=== PATIENT | female | born 1970 | race Caucasian/White ===

== ENCOUNTER → 2019-12-25 13:20 | Outpatient (CLI) | payer OTHER | END | disposition home or self-care (01) | LOC: D.MRI 13:00 | PROVIDERS: ATTEND Orthopaedic Surgery | DX: M93.261 Osteochondritis dissecans, right knee (principal) ==

== ENCOUNTER → 2020-02-01 15:20 | Outpatient (CLI) | payer OTHER | END | disposition home or self-care (01) | LOC: D.LABREF 15:20 | PROVIDERS: ATTEND Orthopaedic Surgery | DX: M10.9 Gout, unspecified (principal) ==

== ENCOUNTER 2020-07-17 05:25 | Day surgery (SDC) | payer OTHER ==
[2020-07-14 14:43] LABS: BASOPHILS 0.2 % (0-2); HEMATOCRIT 40.5 % (36.0-48.0); IMMATURE GRANULOCYTES 0.4 % (0-5); LYMPHOCYTE ABS# 2.08 10x3/uL (1.18-3.74); LYMPHOCYTES 20.6 % (15-50); MCH 28.4 pg (26.0-34.0); MCHC 32.1 g/dL (31.0-37.0); MCV 88.6 fL (80.0-100.0); MEAN PLATELET VOLUME 8.9 fL (7.4-10.4); MONOCYTES 6.2 % (2-11); NEUTROPHIL ABS# 7.24 10x3/uL (1.56-6.13); NEUTROPHILS 71.6 % (40-80); PLATELET COUNT 296 10x3/uL (130-400); RBC 4.57 10x6/uL (4.00-5.40); RDW 14.2 % (11.5-14.5); WBC 10.1 10x3/uL (4.8-10.8)
[2020-07-14 15:08] LABS: ANION GAP 10.7 mmol/L (8-16); CALCIUM 8.9 mg/dL (8.5-10.1); CARBON DIOXIDE 30.9 mmol/L (21.0-32.0); POTASSIUM - SERUM 3.6 mmol/L (3.5-5.1)
[~2020-07-17] VITALS: Ht 160 cm; Wt 89.8 kg
[~2020-07-17 05:25] MED LIST: ALDACTONE50 MG PO; CALAN SR240 MG PO; CYMBALTA20 MG; EMGALITY IM; ESTRACE1 MG PO; FLUTICASONE PRO16 GM NASAL; KLOR-CON 1010 MEQ; OMEPRAZOLE40 MG PO; PROPRANOLOL HCL20 MG
[2020-07-17 06:16] VITALS: BP 153/86; Ht 160 cm; Wt 89.8 kg
[2020-07-17] MEDS ORDERED: REGLAN10 MG PO (06:32)
--- NOTE | 2020-07-17 09:43 | NUR ---
STEADILY DECLINING BP - 500ML LR BOLUS ADMINISTERED
--- NOTE | 2020-07-17 11:40 | NUR ---
PATIENT NOW REPORTS PAIN 4/10 LLE
--- NOTE | 2020-07-17 12:00 | NUR ---
PT STATES NEEDS TO GO TO RESTROOM. IV FLUIDS COMPLETED, IV DC'D WITH CATH INTACT, ASSISTED PT TO DANGLE AND TO BATHROOM, NO DIZZINESS. SPOUSE HELPING PATIENT TO GET DRESSED.
--- NOTE | 2020-07-17 12:10 | NUR ---
DC'D VIA WHEELCHAIR ACCOMPANIED BY ARLETTE TO POV WITH SPOUSE DRIVING ALL BELONGINGS WITH PATIENT AND SPOUSE
--- NOTE | 2020-07-19 11:50 | OP ---
PATIENT NAME: NAN INGRAM MEDICAL RECORD: [id number] :70 LOCATION:[facility] ADMISSION DATE: SURGEON: ASHLY RECIO MD DATE OF OPERATION: 07/17/2020 PREOPERATIVE DIAGNOSES: 1. Left knee pain. 2. Chondromalacia. POSTOPERATIVE DIAGNOSES: 1. Left knee pain. 2. Chondromalacia. PROCEDURE PERFORMED: Left knee scope with chondroplasty and limited synovectomy. INDICATIONS FOR THE PROCEDURE: Ms. Ingram is a 50-year-old female with a history of left knee pain and swelling. She has been having a lot of catching in her knee as well. We have been attempting conservative treatments that are not making much progress and she has elected to undergo surgery for left knee arthroscopy. Risks, benefits and alternatives of surgery were discussed with the patient and consent was obtained. DESCRIPTION OF THE PROCEDURE: The patient was met in the holding area where her identity and confirmation of procedure was performed. Left lower extremity was marked. She was taken to the operating room where she was placed supine on the operating table and anesthesia was administered. Tourniquet was applied to the left thigh. Left leg was positioned in the leg guerra. Left lower extremity was prepped and draped in a sterile fashion. The patient received preoperative antibiotics and a timeout was performed before initiating the case. On initiation of the case, the leg was exsanguinated and the tourniquet was raised. Total tourniquet time was 26 minutes. We began with placement of our superior medial portal, inserted the cannula and filled the knee with fluid. We then placed our anterior lateral portal and inserted the camera and placed our anterior medial portal under direct visualization. Diagnostic knee arthroscopy was performed. There was synovitis present throughout the knee. The patellofemoral joint was very tight and there was grade II-III chondromalacia of the lateral facet of the patella. The trochlea appeared to be in good condition. There was some impingement of the infrapatellar fat pad as well. Medial and lateral gutters were clear. Medial compartment showed a grade II-III chondromalacia of the medial femoral condyle and grade I of the medial tibial plateau. The ACL was intact. The lateral compartment was in good condition. A chondroplasty was performed of the medial femoral condyle. Limited synovectomy was performed at the anterior tissues of the knee and the infrapatellar fat pad. We also switched portals with the camera medial to perform chondroplasty of the lateral patellar facet. Before and after images were obtained. Instruments were removed and fluid was drained from the knee. The portal sites were then infiltrated with 20 mL of 0.25% Marcaine with epinephrine. These were closed with nylon suture and a sterile dressing was placed. The patient was turned back over to anesthesia where she was awakened, extubated, and taken to recovery room in stable condition. POSTOPERATIVE PLAN: The patient is going to return home with her family today. She may be weightbearing as tolerated on the left lower extremity and use crutches as needed. Start physical therapy in 2-3 days. Plan to see her back OPERATIVE REPORT [id number] NAN INGRAM in clinic in 2 weeks. COMPLICATIONS: None. ESTIMATED BLOOD LOSS: 5 mL. ANESTHESIA: General. TRANSINT:[id number] Voice Confirmation ID: [id number] DOCUMENT ID: [id number] ASHLY RECIO MD at 1150 CC: [id number] DICTATION DATE: 07/17/20899 FILM PROCESSOR: 07/17/20917 [facility] 07/17/20 [facility] [address] [place] [address]
== END 2020-07-17 12:10 | disposition home or self-care (01) ==
LOC: D.OPS 05:25
PROVIDERS: Anesthesiology; ATTEND Orthopaedic Surgery
DX: M25.562 Pain in left knee (principal); M94.262 Chondromalacia, left knee; M24.10 Other articular cartilage disorders, unspecified site; I10 Essential (primary) hypertension

== ENCOUNTER → 2020-09-24 07:56 | Outpatient (CLI) | payer OTHER ==
[2020-07-17 06:16] VITALS: BMI 35.1
--- NOTE | ~2020-09-24 | ST ---
PATIENT:NNA INGRAM MEDICAL RECORD: [id number] SEX: F LOCATION:[facility] ORDER #: ADMISSION DATE: 09/24/20 AGE OF PATIENT: 50 REFERRING PHYSICIAN: INTERPRETING PHYSICIAN: SIENNA MARKS MD DATE OF SERVICE: 09/24/2020 NUCLEAR STRESS TEST GATED: Normal. Normal wall motion. Normal wall thickening. Calculated EF 64%. SPECT IMAGING 1. Short axis view: Short axis view shows good uptake along the anterior wall, lateral wall, and inferior wall. 2. Horizontal axis: Horizontal axis confirms good uptake along the anterior wall and inferior wall. 3. Vertical axis: Vertical axis shows good uptake along the lateral wall and septum. FINAL IMPRESSION: 1. Normal gated, normal EF 64%. 2. Normal SPECT imaging. This scan is felt to be at low risk for any significant myocardial ischemia or previous myocardial infarction. LV function remains normal. Continue risk factor modification as recommended. 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
[~2020-09-24 07:56] MED LIST changes: +REGLAN10 MG PO
== END | disposition home or self-care (01) ==
LOC: D.HCCARDIO 07:56
PROVIDERS: ATTEND Internal Medicine Interventional Cardiology
DX: I20.9 Angina pectoris, unspecified (principal)